=== PATIENT | male | born 2000 | race Caucasian/White ===

== ENCOUNTER 2019-10-25 19:32 | Outpatient (REF) | payer OTHER, SELFPAY | END 2019-10-25 19:52 | LOC: NCHCN 19:32 | PROVIDERS: Visit Provider Family Medicine | DX: R30.0 Dysuria (principal) | CPT/HCPCS: 87086 ==

== ENCOUNTER 2020-09-07 20:55 | Outpatient (REF) | payer OTHER, SELFPAY | END 2020-09-07 21:15 | LOC: NCHCN 20:55 | PROVIDERS: Visit Provider Family Medicine | DX: R30.0 Dysuria (principal) | CPT/HCPCS: 87086 ==

== ENCOUNTER 2020-11-09 15:32 | Outpatient (REF) | payer OTHER, SELFPAY ==
[2020-11-09 14:01] LABS: Abs Immature Grans 0.02 10^3/uL (0.0-0.06); Absolute Basophil Count 0.02 10^3/uL (0.0-0.2); Absolute Eosinophil Count 0.07 10^3/uL (0.0-0.7); Absolute Lymphocyte Count 1.66 10^3/uL (1.2-3.4); Absolute Monocyte Count 0.36 10^3/uL (0.1-0.8); Absolute Neutrophil Count 3.63 10^3/uL (1.2-6.7); Basophils % 0.3; Eosinophils % 1.2; HCT 46.7 % (40.0-50.0); HGB 15.7 g/dL (13.5-17.5); Immature Grans % 0.3; Lymphocytes % 28.8; MCH 29.4 pg (27.0-33.0); MCHC 33.6 % (32.0-36.0); MCV 87.5 fL (80-95); MPV 11.9 fL (8.0-11.0); Monocytes % 6.3; Neutrophils % 63.1; Nucleated RBC 0 %; Platelet Count 255 10^3/uL (130-400); RBC 5.34 10^6/uL (4.36-5.78); RDW 11.7 % (11.8-14.1); RDW-SD 37.2 fL; WBC 5.76 10^3/uL (4.4-10.8)
[2020-11-09 14:18] LABS: ALT 45 U/L (16-63); AST 20 U/L (15-37); Albumin 4.5 g/dL (3.4-5.0); Alkaline Phosphatase 70 U/L (46-116); BUN 13 mg/dL (7-18); Bilirubin, Total 0.6 mg/dL (0.2-1.0); CREATININE 0.8 mg/dL (0.70-1.30); Calcium 9.6 mg/dL (8.5-10.1); Chloride 104 mmol/L (98-107); Glucose 118 mg/dL (74-106); Potassium 3.8 mmol/L (3.5-5.1); Sodium 143 mmol/L (136-145)
== END 2020-11-09 15:33 | disposition home or self-care (01) ==
LOC: NCHCN 15:32
PROVIDERS: PCP Family Medicine; Visit Provider Family Medicine
DX: R10.2 Pelvic and perineal pain (principal)
CPT/HCPCS: 80053; 85025

== ENCOUNTER 2021-01-05 08:24 | Outpatient (REF) | payer SELFPAY ==
[2021-01-06 01:59] LABS: COVID-19 RT-PCR UVMMC Result Negative (Negative)
== END 2021-01-05 08:25 | disposition home or self-care (01) ==
LOC: LBO 08:24
PROVIDERS: PCP Family Medicine; Visit Provider Nurse Practitioner Family
DX: Z20.822 Contact with and (suspected) exposure to COVID-19 (principal)
CPT/HCPCS: U0003

== ENCOUNTER 2021-01-12 03:42 | Outpatient (REF) | payer SELFPAY ==
[2021-01-13 05:34] LABS: COVID-19 RT-PCR UVMMC Result Positive (Negative)
== END 2021-01-12 03:43 | disposition home or self-care (01) ==
LOC: LBO 03:42
PROVIDERS: PCP Family Medicine; Visit Provider Nurse Practitioner Family
DX: Z20.822 Contact with and (suspected) exposure to COVID-19 (principal)
CPT/HCPCS: U0003

== ENCOUNTER 2021-03-19 11:09 | Outpatient (REF) | payer SELFPAY ==
[2021-03-19 11:48] LABS: Source Nasal/Nares
[2021-03-19 14:14] LABS: COVID-19 PCR Negative (Negative)
== END 2021-03-19 11:10 | disposition home or self-care (01) ==
LOC: LBO 11:09
PROVIDERS: PCP Family Medicine; Visit Provider Family Medicine
DX: Z20.822 Contact with and (suspected) exposure to COVID-19 (principal)
CPT/HCPCS: 87635

== ENCOUNTER 2021-04-05 03:19 | Outpatient (CLI) | payer OTHER, SELFPAY ==
[2021-04-08 13:10] LABS: Helicobacter pylori Ag, Feces Negative (Negative)
== END 2021-04-05 03:20 | disposition home or self-care (01) ==
LOC: LBO 03:19
PROVIDERS: PCP Family Medicine; Visit Provider Family Medicine
DX: K21.9 Gastro-esophageal reflux disease without esophagitis (principal)
CPT/HCPCS: 87338

== ENCOUNTER 2021-08-15 02:58 | Emergency (ER) | payer OTHER, SELFPAY ==
[2021-08-15] VITALS (9 sets, daily range): BP systolic 122–127; BP diastolic 64–89; PULSE 76–87; RESP 14–21; TEMP 36.5; O2SAT 98–100
--- NOTE | 2021-08-15 03:00 | RT.EKG_ITS ---
APPROVED REPORT Exam: Resting ECG Reason for Exam: chest pain Patient Location: E HR:74 bpm ECG Measurements Heart Rate 74 AXIS MS 127 P 63 QRSd 100 QRS 61 QT 382 T 25 QTc 422 Conclusion Sinus rhythm...normal P axis, V-rate 60- 99 Atrial premature complex...SV complex w/ short R-R interval
--- NOTE | 2021-08-15 03:15 | DI.CT_ITS ---
Exam(s) CT THORAX ABD/PEL CTA EXAM: CT THORAX ABD/PEL CTA CLINICAL HISTORY: chest and abdominal pain,tigre danlos,?dissection. TECHNIQUE: Imaging Protocol: Axial computed tomography images with coronal and sagittal reformatted images were created and reviewed CONTRAST MATERIAL: Intravenous: Omnipaque 350 Contrast volume:125 ml Oral: None COMPARISON: No exams were available for comparison FINDINGS: CHEST: No evidence of thoracic aortic aneurysm nor dissection. No significant findings at the origins of th e great vessels off the aortic arch. Descending thoracic aorta exhibits normal diameter. There is n o evidence of abdominal aortic aneurysm nor significant atherosclerotic disease in the abdominal aort a. Celiac and superior mesenteric arteries are patent as is the inferior mesenteric artery. There i s a solitary renal artery on each side with no evidence of significant renal artery stenosis nor fibr omuscular dysplasia. The aortic bifurcation is patent without significant atherosclerotic disease an d the common and external iliac arteries are nicely patent bilaterally without significant atheroscle rotic disease nor aneurysms of these vessels. Common femoral arteries are also unremarkable in [facility]. Both internal iliac arteries are patent and nonaneurysmal. LUNGS: No infiltrates nor pleural effusions. No ominous pulmonary nodules.. MEDIASTINUM: There is no hilar nor mediastinal adenopathy. Visualized thyroid unremarkable. CARDIAC: Heart size is normal. There is no pericardial effusion. AORTA: As above ABDOMEN: There is no evidence of abdominal aortic aneurysm nor dissection.There is no aneurysmal dilatation of the common iliac arteries.The celiac and superior mesenteric arteries are patent. There is no ascites. LIVER: There are no focal hepatic lesions nor dilatation of intrahepatic ducts. GALLBLADDER/BILIARY: No obvious gallbladder pathology. CBD is not dilated. PANCREAS: No evidence of pancreatic mass nor dilatation of the pancreatic duct. SPLEEN: Spleen is not enlarged. There are no intrasplenic lesions. Splenic and portal veins are pérez nt. ADRENALS: There are no significant adrenal masses. KIDNEYS: No cysts evident. No calculi nor hydronephrosis. No solid renal masses. ABDOMINAL AORTA: The abdominal aorta is not enlarged. LYMPH NODES: There is no retroperitoneal nor para-aortic adenopathy. No obvious mesenteric masses. ABDOMINAL WALL: No evidence of significant anterior abdominal wall hernia. GI: There appears to be and I ileus pattern. Minimally prominent small bowel loops. Mildly distende d colon loops.. PELVIS: LYMPH NODES: There is no intrapelvic nor inguinal adenopathy. GI: Difficult to visualize the appendix but no obvious acute appendicitis evident.No evidence of sigm oid diverticulitis. URINARY BLADDER: No calculi nor masses evident REPRODUCTIVE: Prostate gland is not enlarged. OSSEOUS: No significant osseous lesions. Sacroiliac joints unremarkable. IMPRESSION: 1. No significant aortic findings. No aneurysms and no atherosclerotic involvement of the thoracic a ana paula, abdominal aorta, aortic bifurcation, nor of the aortoiliac segments. Both common femoral arter ies also appear unremarkable. 2. I ileus pattern. This involves both large and small bowel loops. No true bowel obstruction evide nt. There is no ascites. 3. No significant osseous findings. RADIATION DOSE DELIVERED: 818.1mGy.cm Total DLP DATA REPOSITORY: All CT scans at this facility are submitted to the National Radiology Data Registry (NRDR) Dose Index Registry (DIR) with the [employer] (A[employer]). RADIATION OPTIMIZATION: All CT scans at this facility use at least one of these dose optimization te chniques: automated exposure control; mA and/or kV adjustment per patient size (includes targeted exa ms where dose is matched to clinical indication); or iterative reconstruction.
--- NOTE | 2021-08-15 03:18 | ED.GENADUL_ITS ---
Discharge Plan Disposition Patient Disposition: HOME Condition: Stable Discharge Details Clinical Impression: Chest pain, Abdominal pain Primary Care Provider: Shon Mckeon ED Provider: Stalin Ortega Home Meds and New Rx's Prescriptions: No Action No Known Home Meds RF: 0 Discharge Instructions Instructions: Chest Pain (ED) Additional Instructions: your blood work and cat scan did not show any life threatening or emergent causes for your pain follow up with your primary care provider within 1-2 weeks if you feel more ill, have severe worsening pain or have persistent vomit return to the emergency department Medical Decision Making 21 yo male with hx of gerd, ocd, manda danlos, who comes in with complaints of one month of intermittent left sided chest pain and abdominal pain but has been constant and worsened overnight so came here for an evaluation and states a few hours ago had n/v. He denies smoking alcohol or drug use and denies having pain like this in the past. He can't think of anything that makes the pain better or worse. He states the pain also radiates to the back. He is tender and screams in pain when I push on his left upper quadrant and left side of his chest. There is no rashes. He has clear lung sounds and no murmurs. Normal pulses. I suspect this could be musculoskeletal pain or chest wall pain but given his degree of pain and his ehler's danlos feel imaging to evaluate for dissection indicated. His heart score is 0 so doubt acs. He is well score low and perc negative so doubt PE labs show mild low K otherwise no significant findings and image shows no acute findings, question ileus. He has no abdominal tenderness and has been drinking without n/v so doubt ileus at this time. He is stable, given symptoms for a month do not feel reepeat troponin indicated. He is stable for d/c and return precautions given Differential Diagnosis Differential Diagnosis: dissection, pleurisy, splenic infarct Imaging Data Radiologic Study: Attestation: I personally reviewed and interpreted this imaging study as follows: Imaging: CT Scan Radiologist's impression: IMPRESSION: No aortic dissection or hemodynamically significant stenosis Question ileus as described Lab Data Lab results reviewed: Yes I reviewed the patient's lab results. ECG Data Attestation: I personally reviewed and interpreted this ECG (s) as follows: Prior ECG tracings: not available for review Interpretation: sinus rhythm, rate of 74, no acute st t wave ischemic findings HPI General Mode of arrival: ambulatory . Date/Time Provider Initiated Documentation: 08/15/21 03:00 . Limitations to Documentation: no limitations . Information obtained by: patient . History of Present Illness 21 year old M presents to the emergency department with the chief complaint of chest pain, described as moderate, Quality is described as sharp, Patient abdomen. Patient started experiencing this month(s) (1) and it has been intermittent. No relieving factors improve symptom(s), No exacerbating factors reported . Patient notes nausea/vomiting. Patient did receive the following treatments prior to arrival, none Related Data Home Medications Medication Instructions Recorded Confirmed Unknown [No Known Home Meds] 01/02/19 03/24/21 Allergies Allergy/AdvReac Type Severity Reaction Status Date / Time pollen extracts Allergy Mild Verified 01/16/20 15:02 General Stated Complaint: Chest Pain CLAUDINE: 3 Review of Systems All systems reviewed & are unremarkable except as noted in HPI and below Constitutional Constitutional: Denies chills, Denies fever(s) and Denies weakness Cardiovascular Cardiovascular: Denies dyspnea Respiratory Respiratory: Denies cough and Denies dyspnea Musculoskeletal Musculoskeletal: Denies joint swelling Neurologic Neurologic: Denies weakness PFSH All Active Problems (Updated 08/15/21 @ 03:30 by Stalin Ortega MD) Chest pain (Acute) Abdominal pain (Acute) Encounter for screening for other viral diseases (Acute) Pelvic pain in male (Acute) GERD without esophagitis (Acute) Syncope (Acute) OCD (obsessive compulsive disorder) (Acute 10/08/13) mild 2013 - resolved Learning difficulty (Acute 12/16/15) school testing 10/04 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 AD derm /genetics eval 01/23 Medical History (Updated 08/15/21 @ 03:30 by Stalin Ortega MD) ADD (attention deficit disorder) Surgical History EGD - MAC (01/17/18) Tonsillectomy and adenoidectomy Family History Mother Anxiety Hyperlipidemia Father Healthy adult on routine physical examination sibling Hyperlipidemia grandparent Personal history of malignant neoplasm Hyperlipidemia Mental disorder Myocardial infarction Cancer Social History Smoking/Tobacco Use Status: Never Smoking risk assessment performed?: Yes Alcohol Intake: never Drug use: Never Substance use type: does not use Do you feel safe at home: Yes Do you feel safe in your relationship?: Yes Exam Const General: no acute distress Orientation: alert HENMT Head: normal to inspection Ears: external ears normal General nose exam: external nose normal Mouth: moist mucous membranes Eyes General: appearance normal, both eyes and all related structures Neck Neck: normal visual inspection Resp Effort & Inspection: normal respiratory effort and able to speak in complete sentences Cardio Jugular venous pressure: no JVD Rate: regular rate GI Palpation: soft and tender Skin General skin exam: no rashes or lesions noted Neuro General: patient alert and patient oriented x3 Extrem General: normal to inspection Psych Mental Status: mental status grossly normal Course Vital Signs Vital signs: Vital Signs Temperature 36.5 C 08/15/21 03:12 Pulse 76 08/15/21 03:12 Respiratory Rate 18 08/15/21 03:12 Blood Pressure 127/89 08/15/21 03:12 Pulse Oximetry 100 08/15/21 03:12 Temperature 36.5 C 08/15/21 03:12 Temperature Source Tympanic 08/15/21 03:12 Pulse 76 08/15/21 03:12 Respiratory Rate 18 08/15/21 03:12 Respiratory Effort Short of Breath 08/15/21 03:16 Respiratory Depth Normal 08/15/21 03:16 Respiratory Pattern Normal 08/15/21 03:16 Blood Pressure 127/89 08/15/21 03:12 Blood Pressure Position Supine 08/15/21 03:12 Pulse Oximetry 100 08/15/21 03:12 Oxygen Delivery Method Room Air 08/15/21 03:12 Oxygen Flow Rate 0 08/15/21 03:12 Pain Level 7 08/15/21 03:12
[2021-08-15] MEDS: Ketorolac 15 MG/ML VIAL IVP (03:37)
[2021-08-15] MEDS: Ondansetron 4 MG/2 ML VIAL IVP (03:38)
[2021-08-15 03:39] LABS: Abs Immature Grans 0.03 10^3/uL (0.0-0.06); Absolute Basophil Count 0.05 10^3/uL (0.0-0.2); Absolute Lymphocyte Count 3.23 10^3/uL (1.2-3.4); Absolute Monocyte Count 0.77 10^3/uL (0.1-0.8); Absolute Neutrophil Count 4.18 10^3/uL (1.2-6.7); Basophils % 0.6; Eosinophils % 1.2; HCT 46.9 % (40.0-50.0); HGB 15.7 g/dL (13.5-17.5); Immature Grans % 0.4; Lymphocytes % 38.6; MCH 28.8 pg (27.0-33.0); MCHC 33.5 % (32.0-36.0); MCV 85.9 fL (80-95); MPV 11.1 fL (8.0-11.0); Monocytes % 9.2; Nucleated RBC 0 %; Platelet Count 252 10^3/uL (130-400); RBC 5.46 10^6/uL (4.36-5.78); RDW 11.6 % (11.8-14.1); RDW-SD 35.9 fL; WBC 8.36 10^3/uL (4.4-10.8)
[2021-08-15 03:49] LABS: Lipase 96 U/L (73-393)
[2021-08-15 03:55] LABS: ALT 25 U/L (16-63); AST 12 U/L (15-37); Albumin 4.9 g/dL (3.4-5.0); Alkaline Phosphatase 53 U/L (46-116); Anion Gap 11.3 mmol/L (3-11); BUN 10 mg/dL (7-18); CO2 25.7 mmol/L (21.0-32.0); CREATININE 0.9 mg/dL (0.70-1.30); Calcium 10.2 mg/dL (8.5-10.1); Chloride 103 mmol/L (98-107); Glucose 104 mg/dL (74-106); Potassium 3.2 mmol/L (3.5-5.1); Sodium 140 mmol/L (136-145); Total Protein 8.8 g/dL (6.4-8.2); Troponin I < 50 ng/L (<or=60)
[2021-08-15] MEDS: Omnipaque 350 MG/ML 100 ML BTL IJ (04:31)
[2021-08-15] MEDS: Omnipaque 350 MG/ML 50 ML BTL IJ (04:33)
--- NOTE | 2021-08-15 04:57 | DI.VRAD_ITS ---
PROCEDURE INFORMATION: Exam: CTA Chest With Contrast Exam date and time: 08/15/2021 3:25 AM Age: 21 years old Clinical indication: Other: Unspecified; Generalized; Patient HX: Chest and abdominal pain, tigre danlos, ? dissection TECHNIQUE: Imaging protocol: Computed tomographic angiography of the chest with contrast. 3D rendering (Not supervised by radiologist): MIP and/or 3D reconstructed images were created by the technologist. COMPARISON: No relevant prior studies available. FINDINGS: Pulmonary arteries: Normal. No pulmonary emboli. Aorta: Unremarkable. No aortic aneurysm. No aortic dissection. Lungs: Unremarkable. No consolidation. No masses. Pleural spaces: Unremarkable. No pneumothorax. No pleural effusion. Heart: Unremarkable. No cardiomegaly. No pericardial effusion. Lymph nodes: Unremarkable. No enlarged lymph nodes. Bones/joints: Unremarkable. No acute fracture. Soft tissues: Unremarkable. IMPRESSION: No acute findings. No aortic dissection PROCEDURE INFORMATION: Exam: CTA Abdomen and Pelvis With Contrast Exam date and time: 08/15/2021 3:25 AM Age: 21 years old Clinical indication: Other: Unspecified; Generalized; Patient HX: Chest and abdominal pain, tigre danlos, ? dissection TECHNIQUE: Imaging protocol: Computed tomographic angiography of the abdomen and pelvis with contrast material. 3D rendering (Not supervised by radiologist): MIP and/or 3D reconstructed images were created by the technologist. COMPARISON: No relevant prior studies available. FINDINGS: Aorta: No aortic aneurysm. No aortic dissection. Celiac trunk and mesenteric arteries: No occlusion or significant stenosis. Renal arteries: No occlusion or significant stenosis. Right iliac arteries: No occlusion or significant stenosis. Left iliac arteries: No occlusion or significant stenosis. Liver: No mass. Gallbladder and bile ducts: Unremarkable. No calcified stones. No ductal dilation. Pancreas: Unremarkable. No mass. No ductal dilation. Spleen: Unremarkable. No splenomegaly. Adrenal glands: Unremarkable. No mass. Kidneys and ureters: Unremarkable. No solid mass. No hydronephrosis. Stomach and bowel: Prominent/mildly distended portions of the ascending and transverse colon. Prominent/borderline dilated proximal jejunal loops. No definite transition point Appendix: No evidence of appendicitis. Intraperitoneal space: Unremarkable. No free air. No significant fluid collection. Lymph nodes: Unremarkable. No enlarged lymph nodes. Urinary bladder: Unremarkable. No mass. Reproductive: Unremarkable as visualized. Bones/joints: No acute fracture. No dislocation. Soft tissues: Unremarkable. IMPRESSION: No aortic dissection or hemodynamically significant stenosis Question ileus as described Dictated and Authenticated by: Inderjit Watson MD. Ordering:ANTON Gant MD
== END 2021-08-15 05:15 | disposition home or self-care (01) ==
PROVIDERS: Emergency Provider Emergency Medicine; PCP Family Medicine
DX: R07.9 Chest pain, unspecified (principal); R10.12 Left upper quadrant pain; R11.2 Nausea with vomiting, unspecified
CPT/HCPCS: 74177; 80053; 83690; 93005; 96374; 96375; 99285; 84484; 85025; 93010; 99284; J1885; J2405; J3490; Q9967

== ENCOUNTER 2025-05-14 17:45 | Outpatient (REF) | payer OTHER, SELFPAY ==
[2025-05-14 14:54] LABS: Calculated LDL 134 mg/dL (<100); Cholesterol 190 mg/dL (<200); HDL Cholesterol 34 mg/dL (>or=40); Triglyceride 114 mg/dL (<150)
== END 2025-05-14 17:46 | disposition home or self-care (01) ==
LOC: NCHCN 17:45
PROVIDERS: PCP Family Medicine; Visit Provider Family Medicine
DX: E66.3 Overweight (principal)
CPT/HCPCS: 80061